=== PATIENT | male | born 1990 | race Two or more races ===

== ENCOUNTER → 2016-10-18 | Day surgery (SDC) | payer MEDICARE, OTHER ==
[~2016-10-18] VITALS: Ht 157.5 cm; Wt 67.1 kg
[2016-10-18] VITALS (8 sets, daily range): BP systolic 101–125; BP diastolic 37–59
[~2016-10-18] MED LIST: BSS 15ml BTL ONE; Bupivacaine 0.75% 30ml vial INJ ONE; CALCIUM ACETAT667 MG PO; CATAPRES0.3 MG ORAL; DIALYVITE TABL1 EAC1 PO; Dexamethasone 4mg/ml vial ONE; LISINOPRIL40 MG ORAL; Lidocaine 1% MPF 10mg/ml 5ml ONE; Lidocaine 2% 20mg/ml/Epi 0.005mg/ml 20ml vial ONE; Midazolam 2mg/2ml Inj ONE; MitoMYcin Opth 0.2 mg/ml Syringe LEFT EYE ONE; NORMODYNE200 MG ORAL; Povidone-Iodine 5% opth solution ONE; Propofol 10mg/ml 20ml IV ONE; RENVELA0.8 GM ORAL; SENSIPAR30 MG ORAL; Tetracaine 0.5% Opth Soln OP ONE; Tobradex Opth Oint 3.5gm ONE; fentaNYL 100 mcg/2 mL IV ONE; fentaNYL 100 mcg/2 mL IV PRN
[2016-10-18] MEDS: Gatifloxacin Opth Solution 0.5% LEFT EYE SCH ×3 (12:18→12:35)
--- NOTE | 2016-10-18 12:59 | Anethesia Preoperative Eval ---
Anesthesia Pre-op PMH/ROS General Date of Evaluation: Oct 18, 2016 Time of Evaluation: 12:53 Anesthesiologist: Paras ASA Score: ASA 3 Mallampati Score Class I : Soft palate, uvula, fauces, pillars visible Class II: Soft palate, uvula, fauces visible Class III: Soft palate, base of uvula visible Class IV: Only hard plate visible Mallampati Classification: Class III Surgeon: Sommer Diagnosis: L eye pterygium Surgical Procedure: Excision of L eye pterygium Anesthesia History: none Family History: no anesthesia problems Allergies: Coded Allergies: PENICILLINS (Verified Allergy, Intermediate, itch, 10/18/16) Medications: see eMAR Past Medical History Cardiovascular: Reports: HTN, Denies: CAD, SD, arrhythmia, other, valve dz Pulmonary: Denies: COPD, FIGUEROA, asthma, other Gastrointestinal/Genitourinary: Reports: ESRD - on dialysis for almost 20 years , GERD, Denies: CRI, other Neurologic/Psychiatric: Reports: depression/anxiety, Denies: CVA, TIA, dementia, other Endocrine: Reports: steroids - h/o, Denies: DM, hypothyroidism, other HEENT: Denies: CHICKEN RANCH (L), CHICKEN RANCH (R), cataract (L), cataract (R), glaucoma, other Hematology/Immune: Reports: anemia - of chronic d-s, Denies: DVT, bleeding disorder, other Musculoskeletal/Integumentary: Denies: DDD, DJD, OA, RA, edema, other PMH Narrative: as above PSxH Narrative: Kidney transplant x2, nephrectomy, peritoneal dialysis and A-V shunt placement Eye Sx Anesthesia Pre-op Phys. Exam Physician Exam Last Vital Signs Date Time Temp Pulse Resp B/P Pulse Ox O2 Delivery O2 Flow Rate FiO2 10/18/16 12:32 98.4 109 20 122/53 97 Room Air Constitutional: NAD Neurologic: CN 2-12 intact Cardiovascular: RRR, no M/R/G Respiratory: CTA Gastrointestinal: S/NT/ND Airway Exam Mallampati Score: Class III MO: limited Neck: short ROM: limited Teeth: missing Dentures: no lower, no upper Anesthesia Pre-op A/P Labs Chemistry Test 10/18/16 12:15 Potassium Level Pending Risk Assessment & Plan Assessment: ASA 3 Plan: MAC Status Change Before Surgery: No Pre-Antibiotics Drug: none VAKULENKO,DEYANIRA, M.D. Oct 18, 2016 12:59
--- NOTE | 2016-10-18 13:23 | Pre-Procedure Note/Attestation ---
Pre-Procedure Note/Attestation Complete Prior to Procedure Planned Procedure: left Procedure Narrative: Pterygium excision with autograft and mitomycin left eye Indications for Procedure Pre-Operative Diagnosis: Pterygium left eye Attestation I attest that I discussed the nature of the procedure; its benefits; risks and complications; and alternatives (and the risks and benefits of such alternatives ), prior to the procedure, with the patient (or the patient's legal lead customer service representative). I attest that, if there was a reasonable possibility of needing a blood transfusion, the patient (or the patient's legal lead customer service representative) was given the [facility] standardized written summary, pursuant to the Manny Dilip Blood Safety Act ([place] Health and Safety Code # 1645, as amended). I attest that I re-evaluated the patient just prior to the surgery and that there has been no change in the patient's H&P. Hilda Novoa MD Oct 18, 2016 13:23
--- NOTE | 2016-10-18 15:00 | Immediate Post-Op Evaluation ---
Immediate Post-Op Evalulation Immediate Post-Op Evalulation Procedure: L eye pterygium excision Date of Evaluation: Oct 18, 2016 Time of Evaluation: 14:59 IV Fluids: 300 Blood Products: none Estimated Blood Loss: min Urinary Output: none Blood Pressure Systolic: 110 Blood Pressure Diastolic: 42 Pulse Rate: 98 Respiratory Rate: 20 O2 Sat by Pulse Oximetry: 98 Temperature (Fahrenheit): 98.6 Pain Score (1-10): 2 Nausea: No Vomiting: No Complications none Patient Status: awake, patent, none DEYANIRA DIALLO M.D. Oct 18, 2016 15:00
--- NOTE | 2016-10-18 15:02 | 48 Hour Post Anesthesia Eval ---
Post Anesthesia Evaluation Procedure: L eye pterygium excision Date of Evaluation: Oct 18, 2016 Time of Evaluation: 15:38 Blood Pressure Systolic: 118 0: 52 Pulse Rate: 92 Respiratory Rate: 22 Temperature (Fahrenheit): 97.6 O2 Sat by Pulse Oximetry: 98 Airway: patent Nausea: No Vomiting: No Pain Intensity: 1 Hydration Status: adequate Cardiopulmonary Status: stable Mental Status/LOC: patient returned to baseline Follow-up Care/Observations: n/a Post-Anesthesia Complications: none Follow-up care needed: ready to discharge DEYANIRA DIALLO M.D. Oct 18, 2016 15:02
--- NOTE | 2016-10-18 15:03 | Brief Operative Note ---
Immediate Post Operative Note Operative Note Pre-op Diagnosis: Pterygium left eye Procedure: Pterygium excision with conjunctival autograft, mitomycin, and tisseal glue Post-op Diagnosis: Pterygium left eye Post-op Diagnosis: same as pre-op Surgeon: Hilda Novoa Resident Physician: none Additional Surgeons: none Anesthesiologist: Paras Anesthesia: MAC Specimen: yes Complications: none Condition: stable Fluids: minimal Estimated Blood Loss: none Drains: none Implant(s) used?: No Hilda Novoa MD Oct 18, 2016 15:03
--- NOTE | 2016-10-19 21:58 | Operative Note - Dictated ---
DATE OF OPERATION: 10/18/2016 PROCEDURE: Pterygium excision with conjunctival autograft and Mitomycin C application. PREOPERATIVE DIAGNOSIS: Recurrent pterygium, left eye. POSTOPERATIVE DIAGNOSIS: Recurrent pterygium, left eye. SURGEON: Hilda Novoa M.D. BUTTON BUTTONHOLE MARKER: None. TYPE OF ANESTHESIA: Monitored anesthesia care with peribulbar and topical supplement. ANESTHESIOLOGIST: Rich Crain M.D. INDICATIONS: The patient is a 26-year-old gentleman with a history of recurrent pterygium, status post pterygium excision with recurrence and continued redness and irritation in his eye. He has tried steroids with only partial relief. Surgery is recommended to improve his quality of life and to prevent further growth of the pterygium. He was given TobraDex drops one week prior to admission. The risks, benefits, and alternatives of the surgery were explained in detail including the high risk of recurrence as well as the risk of infection, bleeding, prescription change, and double vision. He understood these risks and elected to proceed and signed the informed consent. Description: The patient was given gatifloxacin in the preoperative area. He was brought to the operating room where anesthesia monitors were placed. He was given some sedation followed by 5 mL of a 1:1 combination of lidocaine 2 % and bupivacaine 0.75%. Following this injection, he was prepped and draped in the usual sterile fashion. A lid speculum was placed for exposure. A superior 6-0 Vicryl limb retraction suture was placed and the eye was rotated superiorly to reveal the inferonasal pterygium. The corneal part of the pterygium was dissected and excised with a 0.12 forceps and the small curved scissors. Upon removal of the corneal part of the pterygium, the conjunctival part was excised and the specimen was sent for pathology. A 57-blade was used to smooth out the cornea and remove any remaining conjunctival remnants. A Bettie scissors was used to undermine the conjunctiva. The Mitomycin 0.02% was used. Two pledgets soaked in the Mitomycin solution were placed underneath the conjunctiva as well as on the scleral bed being careful to avoid any Mitomycin exposure to the conjunctiva. After two minutes, the pledgets were removed and the eye was generously irrigated with 30 mL of balanced salt solution. The eye was then rotated inferiorly and a 5-mm conjunctival autograft using superior conjunctiva was dissected with the small Bettie scissors. An autograft was rotated into position in the area exposed by the excised pterygium. Two 10-0 nylon sutures were placed at each limbal corner. The sutures, which incorporated part of the paralimbal sclera. The graft was then reflected onto the cornea so that the undersurface was exposed. The seal glue was applied on the undersurface of the graft as well as on the scleral bed. The autograft was then reflected back into the scleral bed and the surrounding conjunctival tissue was brought up along the edges of the graft. There was full coverage. There was no bare sclerae remaining and no tension on the conjunctivae. At the conclusion of the case, the cornea was smooth. The graft was in place and the margins of the conjunctival graft approximated the area remaining after conjunctival excision. A 1:1 combination of tobramycin and dexamethasone was injected 0.5 mL in total. This was injected subconjunctivally both nasal and temporal to the graft. Gatifloxacin and TobraDex ointment was placed on the eye. The eye was then attached tightly and covered with a plastic shield. The patient returned to recovery room in stable condition. DISPOSITION: Stable. COMPLICATIONS: None. Hilda Novoa M.D. DR: PATTIE JOB#: [id number] CC:
== END | disposition home or self-care (01) ==
LOC: SUR 11:32
DX: H11.062 Recurrent pterygium of left eye (principal); I12.0 Hypertensive chronic kidney disease with stage 5 chronic kidney disease or end stage renal disease; N18.6 End stage renal disease; Z99.2 Dependence on renal dialysis; Z94.0 Kidney transplant status; D63.1 Anemia in chronic kidney disease; G47.33 Obstructive sleep apnea (adult) (pediatric); K21.9 Gastro-esophageal reflux disease without esophagitis; I34.2 Nonrheumatic mitral (valve) stenosis; I34.0 Nonrheumatic mitral (valve) insufficiency; F79 Unspecified intellectual disabilities; F32.9 Major depressive disorder, single episode, unspecified; F41.9 Anxiety disorder, unspecified; Z88.1 Allergy status to other antibiotic agents; Z88.3 Allergy status to other anti-infective agents; Z88.0 Allergy status to penicillin
CPT/HCPCS: 36415; 65426; 84132; J1100; J2250; J2704; J3010; J3490; 94003; 94150